=== PATIENT | male | born 1955 | race Caucasian/White ===

== ENCOUNTER 2019-10-31 14:26 | Outpatient (CLI) | payer BC ==
[~2019-10-31] VITALS: Ht 180.3 cm; Wt 75.7 kg
--- NOTE | 2019-10-31 15:03 | Diagnostic Imaging Report ---
Indication: Preop laryngeal surgery. PA and lateral chest Heart size and pulmonary vascularity are normal. Lungs are clear. There are no effusions or pneumothoraces. IMPRESSION: Negative chest Dictated by: Dictated on workstation # [id number]
[2019-10-31 15:12] VITALS: BP 146/107
[2019-10-31 15:12] LABS: BASOPHILS % (AUTO) 1 % (0-10); EOSINOPHILS # (AUTO) 0.1 10^3/uL (0.0-0.3); EOSINOPHILS % (AUTO) 1 % (0-10); HEMATOCRIT 42 % (40-54); LYMPHOCYTES # (AUTO) 1.5 X 10^3 (1.0-4.0); LYMPHOCYTES % (AUTO) 21 % (12-44); MEAN CORPUSCULAR HEMOGLOBIN 32 PG (25-34); MEAN CORPUSCULAR HGB CONC 34 G/DL (32-36); MEAN CORPUSCULAR VOLUME 93 FL (80-99); MEAN PLATELET VOLUME 8.8 FL (7.4-10.4); MONOCYTES # (AUTO) 0.8 X 10^3 (0.0-1.0); MONOCYTES % (AUTO) 12 % (0-12); NEUTROPHILS # (AUTO) 4.7 X 10^3 (1.8-7.8); NEUTROPHILS % (AUTO) 65 % (42-75); PLATELET COUNT 324 10^3/uL (130-400); RED CELL DISTRIBUTION WIDTH 12.8 % (10.0-14.5); WHITE BLOOD COUNT 7.2 10^3/uL (4.3-11.0)
[2019-10-31] MEDS ORDERED: LOSA50TA63 PO (15:22)
[2019-10-31] MEDS ORDERED: AMLO5TAB4 PO (15:22)
[2019-10-31 15:33] LABS: BUN/CREATININE RATIO 13; CALCIUM 9.1 MG/DL (8.5-10.1); CARBON DIOXIDE 27 MMOL/L (21-32); CHLORIDE 103 MMOL/L (98-107); CREATININE SERUM 0.85 MG/DL (0.60-1.30); GFR ESTIMATED > 60; GLUCOSE 85 MG/DL (70-105); POTASSIUM 4.1 MMOL/L (3.6-5.0); SODIUM 136 MMOL/L (135-145)
== END 2019-10-31 15:00 | disposition home or self-care (01) ==
LOC: PREOP 14:26
PROVIDERS: ATTEND Otolaryngology Otolaryngology/Facial Plastic Surgery
DX: Z01.812 Encounter for preprocedural laboratory examination (principal); Z01.811 Encounter for preprocedural respiratory examination; Z01.810 Encounter for preprocedural cardiovascular examination; J38.3 Other diseases of vocal cords
CPT/HCPCS: 36415; 71046; 80048; 85025; 87081; 93005

== ENCOUNTER 2019-11-03 06:35 | Day surgery (SDC) | payer BC ==
[2019-11-03] VITALS (11 sets, daily range): BP systolic 123–136; BP diastolic 79–93
[~2019-11-03] VITALS: Ht 180.3 cm; Wt 75.7 kg
[~2019-11-03 06:35] MED LIST: AMLO5TAB4 PO; LOSA50TA63 PO
--- NOTE | 2019-11-03 07:00 | Progress Note-Pre Operative ---
Pre-Operative Progress Note H&P Reviewed The H&P was reviewed, patient examined and no changes noted. 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
[2019-11-03] MEDS ORDERED: SUCCINYLCHOLINE INJ 100 MG/5 ML SYR ONE (07:47)
[2019-11-03] MEDS ORDERED: LIDOCAINE PF 2% 5 ML (XYLOCAINE) VIAL ONE (07:47)
[2019-11-03] MEDS ORDERED: ONDANSETRON 4 MG/2 ML (SDV) Z0FRAN ONE (07:47)
[2019-11-03] MEDS ORDERED: SEVOFLURANE (ULTANE) 15 ML INHAL SOLN ONE ×3 (07:47→09:18)
[2019-11-03] MEDS ORDERED: DEXAMETHASONE 10 MG/ML (DECADRON) 1 ML VIAL ONE (07:47)
[2019-11-03] MEDS ORDERED: fentaNYL INJECTION 100 MCG/2 ML AMP ONE (07:47)
[2019-11-03] MEDS ORDERED: MIDAZOLAM 2 MG/2 ML (VERSED) VIAL ONE (07:47)
[2019-11-03] MEDS ORDERED: ROCURONIUM 10 MG/ML 5 ML SYRINGE IV ONE (07:47)
[2019-11-03] MEDS ORDERED: LIDOCAINE/EPI 1%-1:100,000 (XYLOCAINE) 20ML ONE (08:14)
[2019-11-03] MEDS ORDERED: PHENYLEPHRINE 100 MCG/ML 10 ML (ANESTHESIA) SYR ONE (08:43)
[2019-11-03] MEDS ORDERED: ONDANSETRON 4 MG/2 ML (SDV) Z0FRAN IVP PRN (08:45)
[2019-11-03] MEDS ORDERED: fentaNYL INJECTION 100 MCG/2 ML AMP IVP ONE (08:45)
[2019-11-03] MEDS ORDERED: morphine INJ 10 MG/ML 1ML (SYR OR VIAL) IVP ONE (08:45)
[2019-11-03] MEDS ORDERED: MEPERIDINE (DEMEROL) INJ 50 MG/ML IVP ONE (08:45)
--- NOTE | 2019-11-03 08:55 | Progress Note-Post Operative ---
Post-Operative Progess Note Surgeon (s)/Principal Strategist (s) Surgeon JONAS BAILEY MD Principal Strategist n/a Pre-Operative Diagnosis Right anterior Vocal Cord Lesion Post-Operative Diagnosis same Post-Op Procedure Note Date of Procedure: Nov 03, 2019 Name of Procedure Performed: Direct Laryngosocpy with Removal of Right Vocal Cord Lesion Description & Findings Description and Findings: n/a Anesthesia Type get Estimated Blood Loss minimal Packing none. Specimen(s) collected/removed right vocal cord lesio nfor frozen section JONAS BAILEY MD Nov 03, 2019 08:55
[2019-11-03] MEDS ORDERED: HYDROcodone/APAP 5 MG/325 MG (LORTAB) TAB PO PRN (09:00)
[2019-11-03] MEDS ORDERED: ACETAMINOPHEN 325 MG TABLET PO PRN (09:00)
[2019-11-03] MEDS ORDERED: PROMETHAZINE INJ 25 MG/ML (PHENERGAN) AMP IV PRN (09:00)
--- OUTSIDE RECORDS SUMMARY | 2019-11-05 03:06 | XMS REPORT | Continuity of Care Document ---
Author Organization Unknown Address Unknown Phone Unavailable Allergies Active Description Code Type Severity Reaction Onset Reported/Identified Relationship to Patient Clinical Status Yes No Known Drug Allergies [id number] Drug Allergy Unknown N/A 10/31/2019 Medications There is no data. 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 Results Test Result Range Complete blood count (CBC) with automate d white blood cell (WBC) differential - 10/31/19 14:45 Blood leukocytes automated count (number/volume) 7.2 10*3/uL 4.3-11.0 Blood erythrocytes automated count (number/volume) 4.45 10*6/uL 4.35-5.85 Venous blood hemoglobin measurement (mass/volume) 14.0 g/dL 13.3-17.7 Blood hematocrit (volume fraction) 42 % 40-54 Automated erythrocyte mean corpuscular volume 93 [ foz_us] 80-99 Automated erythrocyte mean corpuscular h emoglobin (mass per erythrocyte) 32 pg 25-34 Automated erythrocyte mean corpuscular h emoglobin concentration measurement (mass/volume) 34 g/dL 32-36 Automated erythrocyte distribution width ratio 12. 8 % 10.0- 14.5 Automated blood platelet count (count/volume) 324 10*3/uL 130-400 Automated blood platelet mean volume measurement 8.8 [foz_us] 7.4-10.4 Automated blood neutrophils/100 leukocytes 65 % 42-75 Automated blood lymphocytes/100 leukocytes 21 % 12-44 Blood monocytes/100 leukocytes 12 % 0-12 Automated blood eosinophils/100 leukocytes 1 % 0-10 Automated blood basophils/100 leukocytes 1 % 0-10 Blood neutrophils automated count (number/volume) 4.7 10*3 1.8-7.8 Blood lymphocytes automated count (number/volume) 1.5 10*3 1.0-4.0 Blood monocytes automated count (number/volume) 0. 8 10*3 0.0-1.0 Automated eosinophil count 0.1 10*3/uL 0 .0-0.3 Automated blood basophil count (count/volume) 0.0 10*3/uL 0.0-0.1 Whole blood basic metabolic panel - 05/13 14:45 Serum or plasma sodium measurement (moles/volume) 136 mmol/L 135-145 Serum or plasma potassium measurement (moles/volume) 4.1 mmol/L 3.6-5.0 Serum or plasma chloride measurement (moles/volume) 103 mmol/L 98-107 Carbon dioxide 27 mmol/L 21-32 Serum or plasma anion gap determination (moles/volume) 6 mmol/L 5-14 Serum or plasma urea nitrogen measurement (mass/volume ) 11 mg/dL 7-18 Serum or plasma creatinine measurement (mass/volume) 0.85 mg/dL 0.60-1.30 Serum or plasma urea nitrogen/creatinine mass ratio 13 NRG Serum or plasma creatinine measurement w ith calculation of estimated glomerular filtration rate > NRG Serum or plasma glucose measurement (mass/volume) 85 mg/dL 70-105 Serum or plasma calcium measurement (mass/volume) 9.1 mg/dL 8.5-10.1 Methicillin resistant Staphylococcus aur eus (MRSA) screening culture - 10/31/19 14:45 Methicillin resistant Staphylococcus aureus (MRSA) scr eening culture NEG NRG Encounters ACCT No. Visit Date/Time Discharge Status Pt. Type Provider Facility Loc./Unit Complaint [id number] 11/03/2019 06:35:00 020 11:00:00 DIS Outpatient JONAS BAILEY MD Via [facility] SDC RIGHT VOCAL CORD LESION [id number] 10/31/2019 14:26:00 15:00:00 DIS Outpatient JONAS BAILEY MD Via [facility] PREOP RIGHT VOCAL CORD LESION [id number] 11/07/2019 15:45:00 P EN Preadmit LEO GRAHAM, JONAS Arellano Via [facility] RAD CA OF RT VOCAL CORD
--- NOTE | 2019-11-07 06:49 | Anesthesia-General Post-Op ---
General Patient Condition Mental Status/LOC: Same as Preop Cardiovascular: Satisfactory Nausea/Vomiting: Absent Respiratory: Satisfactory Pain: Controlled Complications: Absent Post Op Complications Complications None Follow Up Care/Instructions Patient Instructions postop addendum. seen on 11/03/19 at 0950. Anesthesia/Patient Condition Patient Condition Patient is doing well, no complaints, stable vital signs, no apparent adverse anesthesia problems. No complications reported per nursing. ZI ESQUEDA CRNA Nov 07, 2019 06:49
== END 2019-11-03 11:00 | disposition home or self-care (01) ==
LOC: SDC 06:35
PROVIDERS: ATTEND Otolaryngology Otolaryngology/Facial Plastic Surgery
DX: C32.0 Malignant neoplasm of glottis (principal); I10 Essential (primary) hypertension; Z87.891 Personal history of nicotine dependence; Z79.899 Other long term (current) drug therapy

== ENCOUNTER → 2019-11-07 | Outpatient (CLI) | payer BC ==
--- NOTE | 2019-11-07 16:33 | Diagnostic Imaging Report ---
EXAMINATION: CT Neck and Chest with intravenous contrast. TECHNIQUE: Multiple contiguous axial images were obtained through the neck and chest after the uneventful administration of intravenous contrast. All CT scans use one or more of the following dose optimizing techniques: automated exposure control, MA and/or KvP adjustment based on a patient size and exam type, or iterative reconstruction. HISTORY: Cancer of right vocal cord. COMPARISON: None available. FINDINGS: Neck CT: Scattered subcentimeter lymph nodes are seen in the neck. None are pathologically enlarged or abnormally enhancing. The muscles of the neck are normal. There is bilateral carotid bifurcation atherosclerosis with at least mild stenosis of the internal carotid arteries. Fascial planes are preserved and the deep spaces of the neck are normal. The visualized airway is widely patent. Tonsilliths were seen in both palatine tonsils. The vocal folds appear symmetric. The base of the skull and the temporal bones are normal. Limited views of the brain including the cerebellum and brainstem are normal. The limited view of the [place] is unremarkable. The visualized portions of the orbits are normal. The spinal canal is normal in caliber. Intervertebral disk heights are normal. Neural foramina are normal. Chest CT: There is no edema or pneumonia. No pleural effusion. No pneumothorax. There is an indeterminate 3 mm nodule in the right upper lobe (series 4, image 44). There is a 2 mm nodule in the right middle lobe (series 4, image 90). Heart size is normal. There are mild coronary artery calcifications. No pericardial effusion. Aorta is normal in caliber. There is no axillary or supraclavicular lymphadenopathy. There is no mediastinal lymphadenopathy. Limited views of the upper abdomen are unremarkable. There are no suspicious osseus lesions. IMPRESSION: 1. No CT evidence of a mass or metastatic disease in the neck. 2. Tiny indeterminate pulmonary nodules are unlikely to be related to malignancy, but short-term follow-up can be performed to ensure stability. Dictated by: Dictated on workstation # [id number]
== END ==
LOC: RAD 15:23
PROVIDERS: ATTEND Otolaryngology Otolaryngology/Facial Plastic Surgery
DX: C32.0 Malignant neoplasm of glottis (principal)
CPT/HCPCS: 70491; 71260

== ENCOUNTER 2019-11-30 11:20 | Outpatient (RCR) | payer BC | END 2020-02-21 | disposition home or self-care (01) | LOC: ONC 11:20 | PROVIDERS: ATTEND Radiology Radiation Oncology | DX: Z51.0 Encounter for antineoplastic radiation therapy (principal); C32.0 Malignant neoplasm of glottis | CPT/HCPCS: 77290; 77295; 77300; 77334 ×2; G0463; 99204 ==

== ENCOUNTER 2020-03-21 10:20 | Outpatient (RCR) | payer BC | END 2020-06-19 | disposition home or self-care (01) | LOC: ONC 10:20 | PROVIDERS: ATTEND Radiology Radiation Oncology | DX: C32.0 Malignant neoplasm of glottis (principal) | CPT/HCPCS: 99213 ==

== ENCOUNTER 2020-04-01 10:19 | Emergency (ER) | payer BC ==
[2020-04-01] MEDS ORDERED: ADENOSINE 6 MG/2 ML (ADENOCARD) VIAL IV ONE ×5 (10:24→11:15)
[2020-04-01] MEDS ORDERED: NS IV 1000 ML 1,000 ML ONE ×3 (10:24→14:06)
--- OUTSIDE RECORDS SUMMARY | 2020-04-01 10:25 | XMS REPORT | Continuity of Care Document ---
Author Organization Unknown Address Unknown Phone Unavailable Allergies Active Description Code Type Severity Reaction Onset Reported/Identified Relationship to Patient Clinical Status Yes No Known Drug Allergies [id number] Drug Allergy Unknown N/A 10/31/2019 Medications There is no data. 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 11/03/2019 JONAS BAILEY MD P Ot Z01.810 ENCOUNTER FOR PREPROCEDURAL CARDIOVASCUL 11/03/2019 JONAS BAILEY MD P Ot Z01.811 ENCOUNTER FOR PREPROCEDURAL RESPIRATORY 11/03/2019 JONAS BAILEY MD P Ot Z01.812 ENCOUNTER FOR PREPROCEDURAL LABORATORY E 11/03/2019 JONAS BAILEY MD Ot C32 .0 MALIGNANT NEOPLASM OF GLOTTIS 11/03/2019 JONAS BAILEY MD Ot I10 ESSENTIAL (PRIMARY) HYPERTENSION 11/03/2019 JONAS BAILEY MD P Ot 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 11/03/2019 JONAS BAILEY MD P Ot Z87.891 PERSONAL HISTORY OF NICOTINE DEPENDENCE 11/08/2019 JONAS BAILEY MD Ot C32 .0 MALIGNANT NEOPLASM OF GLOTTIS 11/08/2019 JONAS BAILEY MD Ot I10 ESSENTIAL (PRIMARY) HYPERTENSION 11/08/2019 JONAS BAILEY MD Ot Z79.899 OTHER [facility] (CURRENT) DRUG THERAPY 11/08/2019 JONAS BAILEY MD P Ot Z87.891 PERSONAL HISTORY OF NICOTINE DEPENDENCE 11/08/2019 JONAS BAILEY MD P Ot C32 .0 MALIGNANT NEOPLASM OF GLOTTIS 11/16/2019 JONAS BAILEY MD Ot C32 .0 MALIGNANT NEOPLASM OF GLOTTIS 11/16/2019 JONAS BAILEY MD Ot I10 ESSENTIAL (PRIMARY) HYPERTENSION 11/16/2019 JONAS BAILEY MD, Ot Z79.899 OTHER [facility] (CURRENT) DRUG THERAPY 11/16/2019 JONAS BAILEY MD Ot Z87.891 PERSONAL HISTORY OF NICOTINE DEPENDENCE 11/28/2019 JONAS BAILEY MD Ot C32 .0 MALIGNANT NEOPLASM OF GLOTTIS 01/13/2020 CHUYITA HURD MD, Ot C32.0 MALIGNANT NEOPLASM OF GLOTTIS 01/13/2020 CHUYITA HURD MD Ot Z51.0 ENCOUNTER FOR ANTINEOPLASTIC RADIATION T 02/21/2020 CHUYITA HURD MD, Ot C32.0 MALIGNANT NEOPLASM OF GLOTTIS 02/21/2020 CHUYITA HURD MD Ot Z51.0 ENCOUNTER FOR ANTINEOPLASTIC RADIATION T 02/28/2020 CHUYITA HURD MD, Ot C32.0 MALIGNANT NEOPLASM OF GLOTTIS 02/28/2020 CHUYITA HURD MD, Ot Z51.0 ENCOUNTER FOR ANTINEOPLASTIC RADIATION T Procedures There is no data. Results Test [...] Status Pt. Type Provider Facility Loc./Unit Complaint [id number] 03/21/2020 10:20:00 020 23:59:59 CLS Outpatient CHUYITA HURD MD [facility] ONC [id number] 11/30/2019 11:20:00 020 00:01:00 DIS Outpatient CHUYITA HURD MD [facility] ONC [id number] 11/07/2019 15:23:00 23:59:59 CLS Outpatient LEO GRAHAM, JONAS Arellano [facility] RAD CA OF RT VOCAL CORD [id number] 11/03/2019 06:35:00 11:00:00 DIS Outpatient JONAS BAILEY MD [facility] SDC RIGHT VOCAL CORD LESION [id number] 10/31/2019 14:26:00 15:00:00 DIS Outpatient JONAS BAILEY MD [facility] PREOP RIGHT VOCAL CORD LESION [id number] 04/01/2020 10:21:[address] Emergency TIFFANY GRAHAM, RAJNI Christie [facility] ER FS HYPERTENSION; DIZZINESS; MENG SEA; CHEST PAIN
[2020-04-01] MEDS ORDERED: dilTIAZem DRIP PRE-MIX 125 ML IV ONE (10:34)
--- NOTE | 2020-04-01 10:48 | ED Cardiac General ---
History of Present Illness General Chief Complaint: Cardiac/General Problems Stated Complaint: HYPERTENSION; DIZZINESS; NAUSEA; CHEST PAIN Source: patient Exam Limitations: no limitations History of Present Illness Date Seen by Provider: Apr 01, 2020 Time Seen by Provider: 10:20 Initial Comments This patient is a 64-year-old male that presents to the emergency department with complaint of palpitations. Patient states she's been feeling like he sat a fast heart rate for the past couple days but today was having significant dizziness significant palpitations. Upon arrival patient was in SVT with a heart rate of 183 on EKG. Patient was subsequently placed on IV stretcher start an IV with IV fluid bolus. Blood pressure was 98/53. Patient was given 6 mg of adenosine followed by 12 mg and then an additional 12 mg and patient continued to be in SVT blood pressure remained stable. Subsequent was able to start a Cardizem drip at 5 mg a minute and we'll titrate slowly to try to slow down the heart rate. Heart rate at this time 173. Blood pressure remained stable 98/56. We will continue to monitor the patient. We will do medical evaluation treatment is needed. Timing/Duration: getting worse, 2-3 days Severity: severe Activities at Onset: none Prior CP/Workup: no prior chest pain, no prior cardiac workup Allergies and Home Medications Allergies Coded Allergies: No Known Drug Allergies (Unverified , 10/31/19) Home Medications Amlodipine Besylate 5 Mg Tablet, 5 MG PO DAILY, (Reported) Losartan Potassium 50 Mg Tablet, 50 MG PO DAILY, (Reported) Patient Home Medication List Home Medication List Reviewed: Yes Review of Systems Review of Systems Constitutional: see HPI EENTM: No No Symptoms Reported, No See HPI, No Blurred Vision, No Double Vision, No Eye Pain, No Eye Tearing, No Ear Drainage, No Ear Pain, No Mouth Pain, No Mouth Swelling, No Nose Congestion, No Nose Pain, No Throat Pain, No Throat Swelling, No Other Respiratory: Denies No Symptoms Reported, Denies See HPI, Denies Cough, Denies Orthopnea, Denies Shortness of Air, Denies SOA With Exertion, Denies SOA at Rest, Denies Stridor, Denies Wheezing, Denies Other Cardiovascular: See HPI, Irregular Heart Rate, Lightheadedness, Palpitations Gastrointestinal: Denies No Symptoms Reported, Denies See HPI, Denies Abdomen Distended, Denies Abdominal Pain, Denies Blood Streaked Stools, Denies Constipat ed, Denies Diarrhea, Denies Difficulty Swallowing, Denies Nausea, Denies Poor Appetite, Denies Poor Fluid Intake, Denies Rectal Bleeding, Denies Vomiting, Denies Other Genitourinary: Denies No Symptoms Reported, Denies See HPI, Denies Burning, Denies Discharge, Denies Drainage, Denies Frequency, Denies Flank Pain, Denies Hematuria, Denies Incontinence, Denies Pain, Denies Urgency, Denies Other Musculoskeletal: No no symptoms reported, No see HPI, No back pain, No gout, No joint pain, No joint swelling, No muscle pain, No muscle stiffness, No muscle cramps, No muscle twitching, No muscle weakness, No neck pain, No other Skin: No no symptoms reported, No see HPI, No change in color, No change in hair/nails, No dryness, No hx of skin cancer, No lesions, No lumps, No pruritus, No rash, No other Psychiatric/Neurological: Denies No Symptoms Reported, Denies See HPI, Denies Anxiety, Denies Depressed, Denies Emotional Problems, Denies Headache, Denies Numbness, Denies Paresthesia, Denies Pre-Existing Deficit, Denies Seizure, Denies Tingling, Denies Tremors, Denies Weakness, Denies Other Endocrine: Denies No Symptoms Reported, Denies See HPI, Denies Excessive S weating, Denies Flushing, Denies Intolerance to Cold, Denies Intolerance to Heat, Denies Increased Hunger, Denies Increased Thrist, Denies Increased Urine, Denies Unexplained Weight Gain, Denies Unexplaned Weight Loss, Denies Other All Other Systems Reviewed Negative Unless Noted: Yes Past Neirhyl-Eteezj-Qchrmh Hx Patient Social History Alcohol Use: Occasionally Uses Number of Drinks Today: AA Alcohol Beverage of Choice: Beer Recreational Drug Use: No Smoking Status: Former Smoker Former Smoker, Quit: Oct 30, 2004 2nd Hand Smoke Exposure: No Recent Foreign Travel: No Contact w/Someone Who Travel: No Recent Hopitalizations: No Seasonal Allergies Seasonal Allergies: Yes Past Medical History Surgeries: Yes (back sx, knee sx) Respiratory: No Cardiac: Yes Hypertension Neurological: No Genitourinary: No Gastrointestinal: No Musculoskeletal: Yes Arthritis Endocrine: No HEENT: Yes (vocal cord lesion) Cancer: Yes (LARYNX) Did You Recieve Any Treatments: Yes What Type of Treatment Did You: Radiation Psychosocial: No Integumentary: No Blood Disorders: No Physical Exam Vital Signs Vital Signs - First Documented 04/01/20 10:37 Temp 36.8 Pulse 180 Resp 20 B/P (MAP) 102/64 (77) Pulse Ox 99 Capillary Refill : Height, Weight, BMI Height: '" Weight: lbs. oz. kg; 23.28 BMI Method: General Appearance: No Apparent Distress, WD/WN HEENT: PERRL/EOMI, TMs Normal, Normal ENT Inspection, Pharynx Normal Neck: Full Range of Motion, Normal Inspection, Non Tender Respiratory: Chest Non Tender, Lungs Clear, Normal Breath Sounds, No Accessory Muscle Use, No Respiratory Distress Cardiovascular: No Edema, No Gallop, No JVD, No Murmur, Normal Peripheral Pulses, Tachycardia Gastrointestinal: Normal Bowel Sounds, No Organomegaly, No Pulsatile Mass, Non Tender Extremity: Normal Capillary Refill, Normal Inspection, Normal Range of Motion, Non Tender, No Calf Tenderness, No Pedal Edema Neurologic/Psychiatric: Alert, Oriented x3, No Motor/Sensory Deficits, Normal Mood/Affect Skin: Normal Color, Warm/Dry Lymphatic: No Adenopathy Progress/Results/Core Measures Results/Orders Lab Results Laboratory Tests Test 04/01/20 10:45 Range/Units White Blood Count 12.4 H 4.3-11.0 10^3/uL Red Blood Count 4.88 4.35-5.85 10^6/uL Hemoglobin 15.2 13.3-17.7 G/DL Hematocrit 45 40-54 % Mean Corpuscular Volume 92 80-99 FL Mean Corpuscular Hemoglobin 31 25-34 PG Mean Corpuscular Hemoglobin Concent 34 32-36 G/DL Red Cell Distribution Width 13.3 10.0-14.5 % Platelet Count 332 130-400 10^3/uL Mean Platelet Volume 9.1 7.4-10.4 FL Neutrophils (%) (Auto) 75 42-75 % Lymphocytes (%) (Auto) 11 L 12-44 % Monocytes (%) (Auto) 12 0-12 % Eosinophils (%) (Auto) 1 0-10 % Basophils (%) (Auto) 1 0-10 % Neutrophils # (Auto) 9.3 H 1.8-7.8 X 10^3 Lymphocytes # (Auto) 1.3 1.0-4.0 X 10^3 Monocytes # (Auto) 1.5 H 0.0-1.0 X 10^3 Eosinophils # (Auto) 0.1 0.0-0.3 10^3/uL Basophils # (Auto) 0.1 0.0-0.1 10^3/uL Prothrombin Time 12.7 12.2-14.7 SEC INR Comment 0.9 0.8-1.4 Sodium Level 132 L 135-145 MMOL/L Potassium Level 4.9 3.6-5.0 MMOL/L Chloride Level 98 98-107 MMOL/L Carbon Dioxide Level 25 21-32 MMOL/L Anion Gap 9 5-14 MMOL/L Blood Urea Nitrogen 14 7-18 MG/DL Creatinine 1.28 0.60-1.30 MG/DL Estimat Glomerular Filtration Rate 57 BUN/Creatinine Ratio 11 Glucose Level 122 H 70-105 MG/DL Calcium Level 9.0 8.5-10.1 MG/DL Corrected Calcium 8.9 8.5-10.1 MG/DL Total Bilirubin 0.6 0.1-1.0 MG/DL Aspartate Amino Transf (AST/SGOT) 28 5-34 U/L Alanine Aminotransferase (ALT/SGPT) 40 0-55 U/L Alkaline Phosphatase 91 40-136 U/L Troponin I 1.16 *H <0.30 NG/ML Pro-B-Type Natriuretic Peptide 2624.0 H <75.0 PG/ML Total Protein 7.1 6.4-8.2 GM/DL Albumin 4.1 3.2-4.5 GM/DL My Orders Orders - RAJNI ALLEN MD Ns Iv 1000 Ml (Sodium Chloride 0.9%) (04/01/20 10:24) Adenosine Injection (Adenocard Injection (04/01/20 10:24) Adenosine Injection (Adenocard Injection (04/01/20 10:32) Diltiazem Injection (Cardizem Injection) (04/01/20 10:32) Diltiazem Drip Pre-Mix (Cardizem Drip Pr (04/01/20 10:34) Ed Iv/Invasive Line Start (04/01/20 10:40) Comprehensive Metabolic Panel (04/01/20 10:40) Cbc With Automated Diff (04/01/20 10:40) Probnp Fs (04/01/20 10:40) Protime With Inr (04/01/20 10:40) Troponin I Fs (04/01/20 10:40) Thyroid Stimulating Hormone (04/01/20 10:40) Chest 1 View Ap/Pa Only (04/01/20 10:40) Ekg Tracing (04/01/20 10:40) Ns Iv 1000 Ml (Sodium Chloride 0.9%) (04/01/20 10:55) Adenosine Injection (Adenocard Injection (04/01/20 11:00) Adenosine Injection (Adenocard Injection (04/01/20 11:00) Diltiazem Drip Pre-Mix (Cardizem Drip Pr (04/01/20 11:00) Ns Iv 1000 Ml (Sodium Chloride 0.9%) (04/01/20 11:00) Adenosine Injection (Adenocard Injection (04/01/20 11:15) Ns Iv 1000 Ml (Sodium Chloride 0.9%) (04/01/20 11:15) Heparin (Bolus Per Protocol) (Heparin (B (04/01/20 11:29) Medications Given in ED Current Medications Medications Dose Ordered Sig/Jovan Route Start Time Stop Time Status Last Admin Dose Admin Adenosine 6 mg ONCE ONCE IV 04/01/20 11:00 04/01/20 11:02 DC 04/01/20 10:31 6 MG Adenosine 12 mg ONCE ONCE IV 04/01/20 11:00 04/01/20 11:02 DC 04/01/20 10:34 12 MG Adenosine 12 mg ONCE ONCE IV 04/01/20 11:15 04/01/20 11:16 DC 04/01/20 10:37 12 MG Vital Signs/I&O 04/01/20 10:37 Temp 36.8 Pulse 180 Resp 20 B/P (MAP) 102/64 (77) Pulse Ox 99 Progress Progress Note : Time: 11:35 Progress Note Heart rate appears to be somewhat improved patient's symptoms of feeling much better. Heart rate is going from 120s up to 160s. Titrating slowly to monitor patient's blood pressure. Blood pressure at this time is 92/66. Discussed at length with patient about options. Patient does have an elevated troponin of 1.16 and a proBNP of 2624. Believe this is related to the SVT patient has no complaints of chest pain and EKG is unremarkable with no ST elevation. We will have her give patient for thousand heparin bolus. Patient requests to be transferred to [facility]. We'll contact her sports marketing coordinator evaluate. Further as needed. Initial ECG Impression Date: Apr 01, 2020 Initial ECG Impression Time: 10:22 Initial ECG Rate: 183 Initial ECG Rhythm: SVT Initial ECG Intervals: Normal Initial ECG Impression: SVT Initial ECG Comparisson: No Previous ECG Available Comment SVT with a heart rate of 183. Departure Impression Primary Impression: SVT (supraventricular tachycardia) Additional Impression: Elevated troponin Disposition: 02 XFER SHT-TRM HOSP Condition: Stable Transfer Transfer Reason: Exceeds level of care Time Spoke to Accepting Phy: 12:37 Transfer Progress Notes Patient be transferred to [facility] Dr. [facility] cardiology. He agrees with a 4000 units heparin continue Cardizem drip. Patient is a 7.5 at this time. Heart rate is bouncing from 95-160 blood pressure still been monitor closely. Patient be transferred shortly. Transfer Time: 12:37 Transfer Facility: [facility] Method of Transfer: EMS Departure-Patient Inst. Decision time for Depature: 11:40 Referrals: MAX BOWERS MD (PCP/Family) Primary Care Physician RAJNI ALLEN MD Apr 01, 2020 10:47
--- NOTE | 2020-04-01 10:50 | NUR ---
Called Leatha, patients , to update on patient condition.
--- NOTE | 2020-04-01 10:55 | Diagnostic Imaging Report ---
INDICATION: Tachycardia. Comparison made with prior examination of 10/31/2019. FINDINGS: The heart size, mediastinal configuration, and pulmonary vascularity are within normal limits. There is no pleural effusion, pneumothorax, or pneumonia. The osseous structures are unremarkable. IMPRESSION: No acute cardiopulmonary abnormality. Dictated by: Dictated on workstation # [id number]
[2020-04-01 10:57] LABS: HEMATOCRIT 45 % (40-54); HEMOGLOBIN 15.2 G/DL (13.3-17.7); MEAN CORPUSCULAR HEMOGLOBIN 31 PG (25-34); MEAN CORPUSCULAR HGB CONC 34 G/DL (32-36); MEAN CORPUSCULAR VOLUME 92 FL (80-99); MEAN PLATELET VOLUME 9.1 FL (7.4-10.4); PLATELET COUNT 332 10^3/uL (130-400); RED CELL DISTRIBUTION WIDTH 13.3 % (10.0-14.5); WHITE BLOOD COUNT 12.4 10^3/uL (4.3-11.0)
[2020-04-01 10:58] LABS: BASOPHILS # (AUTO) 0.1 10^3/uL (0.0-0.1); BASOPHILS % (AUTO) 1 % (0-10); EOSINOPHILS # (AUTO) 0.1 10^3/uL (0.0-0.3); EOSINOPHILS % (AUTO) 1 % (0-10); LYMPHOCYTES # (AUTO) 1.3 X 10^3 (1.0-4.0); LYMPHOCYTES % (AUTO) 11 % (12-44); MONOCYTES # (AUTO) 1.5 X 10^3 (0.0-1.0); MONOCYTES % (AUTO) 12 % (0-12); NEUTROPHILS # (AUTO) 9.3 X 10^3 (1.8-7.8); NEUTROPHILS % (AUTO) 75 % (42-75)
[2020-04-01] MEDS ORDERED: dilTIAZem DRIP PRE-MIX 125 ML IV SCH (11:00)
[2020-04-01] MEDS ORDERED: NS IV 1000 ML 1,000 ML IV SCH ×3 (11:00→14:15)
[2020-04-01 11:03] LABS: PROTHROMBIN TIME PATIENT 12.7 SEC (12.2-14.7)
[2020-04-01 11:04] LABS: INR 0.9 (0.8-1.4)
[2020-04-01 11:21] LABS: CREATININE SERUM 1.28 MG/DL (0.60-1.30); POTASSIUM 4.9 MMOL/L (3.6-5.0)
[2020-04-01 11:22] LABS: BILIRUBIN,TOTAL 0.6 MG/DL (0.1-1.0)
[2020-04-01 11:23] LABS: TOTAL PROTEIN 7.1 GM/DL (6.4-8.2)
[2020-04-01 11:24] LABS: ALBUMIN 4.1 GM/DL (3.2-4.5)
[2020-04-01] MEDS ORDERED: HEParin 1000 UNIT/ML (10ML VIAL) FOR BOLUS IV STA (11:29)
[2020-04-01 16:15] VITALS: BP 100/73
== END 2020-04-01 16:18 | disposition short-term general hospital (02) ==
LOC: EDUNIT# 10:19 → ER FS 10:21
DX: I47.1 Supraventricular tachycardia (principal); R79.89 Other specified abnormal findings of blood chemistry; I10 Essential (primary) hypertension; Z87.891 Personal history of nicotine dependence
CPT/HCPCS: 36415; 71045; 80053; 83880; 84443; 84484; 85025; 85610; 93005

== ENCOUNTER → 2020-05-04 | Outpatient (CLI) | payer BC ==
[~2020-05-04] MED LIST changes: +CATHETER FLUSH 10 ML SYR IV PRN; +HOLD METFORMIN - RECEIVED CONTRAST 20 ML VIAL IV SCH; +IOHEXOL 350 MG/ML 100 ML (OMNIPAQUE 350) VIAL IV ONE; +NS 100 ML (IVPB) BAG IV ONE
[2020-05-04 09:26] LABS: BUN/CREATININE RATIO 10; CREATININE SERUM 0.99 MG/DL (0.60-1.30); GFR ESTIMATED > 60
--- NOTE | 2020-05-04 10:48 | Diagnostic Imaging Report ---
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 TECHNIQUE: Axial imaging through the neck and chest was performed after the administration of intravenous contrast. Sagittal and coronal reformations were also performed. All CT scans use one or more of the following dose optimizing techniques: automated exposure control, MA and/or KvP adjustment based on patient size and exam type or iterative reconstruction. COMPARISON: Comparison is made with prior CT from 11/07/2019. FINDINGS: CT NECK: The visualized intracranial structures are unremarkable. The posterior nasopharynx is unremarkable. The oropharynx is unremarkable. Parapharyngeal fat planes are preserved. The epiglottis and larynx appear unremarkable. Vocal folds appear to be symmetric. No thyroid mass is identified. Bilateral submandibular and parotid glands are unremarkable. No definite pathologically enlarged lymph nodes are detected in the neck. No fluid collection is seen. IMPRESSION: Stable soft tissue neck CT when compared with exam from 11/07/2019. No mass or cervical lymphadenopathy is identified. CT CHEST: No axillary lymphadenopathy is identified. Non pathologically enlarged mediastinal lymph nodes are again noted. No definite pathologically enlarged mediastinal or hilar lymph nodes are detected. No pericardial or pleural fluid is identified. Pulmonary parenchymal evaluation demonstrates a stable tiny nodule in the right middle lobe. Tiny nodule noted in the posterior right upper lobe is also stable. No new parenchymal mass or nodule is seen. There are no infiltrates. Upper abdomen is unremarkable. IMPRESSION: Stable CT chest since exam from 11/07/2019. Stable right upper lobe and right middle lobe pulmonary nodules are noted. There are no findings of thoracic lymphadenopathy or pulmonary metastatic disease. Dictated by: Dictated on workstation # [id number]
== END ==
LOC: LAB FS 08:47
PROVIDERS: ATTEND Otolaryngology Otolaryngology/Facial Plastic Surgery
DX: C32.0 Malignant neoplasm of glottis (principal); R91.8 Other nonspecific abnormal finding of lung field
CPT/HCPCS: 36415; 70491; 71260; 82565; 84520